=== PATIENT | male | born 1995 | race Two or more races ===

== ENCOUNTER 2016-08-21 20:22 | Emergency (ER) | payer SELFPAY ==
[~2016-08-21] VITALS: Ht 185.4 cm; Wt 69.9 kg
[2016-08-21 21:32] VITALS: BP 128/81
--- NOTE | 2016-08-21 21:51 | PHYS DOC ---
Past Medical History Past Medical History: No Pertinent History Past Surgical History: No Surgical History Alcohol Use: Occasionally Drug Use: None Adult General Chief Complaint Chief Complaint: LACERATION/AVULSION [facility] HPI Patient is a 20 year old who presents emergency department stating that he was cutting a step when he cut his right hand along the Metacarpal area. He has a V- shaped type laceration with a total measurement approximately 1 cm. Bleeding is currently controlled. Patient's immunizations are up-to-date. Patient has full range of motion of the hand. Good sensation noted to the fingers. Patient states he is right-hand dominant. Review of Systems Review of Systems Constitutional: Denies fever or chills [] Eyes: Denies change in visual acuity, redness, or eye pain [] HENT: Denies nasal congestion or sore throat [] Respiratory: Denies cough or shortness of breath [] Cardiovascular: No additional information not addressed in HPI [] GI: Denies abdominal pain, nausea, vomiting, bloody stools or diarrhea [] : Denies dysuria or hematuria [] Musculoskeletal: Denies back pain or joint pain [] Integument: Denies rash or skin lesions [] Neurologic: Denies headache, focal weakness or sensory changes [] Endocrine: Denies polyuria or polydipsia [] Current Medications Current Medications Current Medications Medications (Trade) Dose Ordered Sig/[facility] Start Time Stop Time Status Last Admin Dose Admin Lidocaine/Sodium Bicarbonate (Buffered Lidocaine 1%) 20 ml 1X ONCE 08/21/16 22:00 08/21/16 22:01 UNV Physical Exam Physical Exam Constitutional: Well developed, well nourished, no acute distress, non-toxic appearance. [] HENT: Normocephalic, atraumatic, bilateral external ears normal, oropharynx moist, no oral exudates, nose normal. [] Eyes: PERRLA, EOMI, conjunctiva normal, no discharge. [] Neck: Normal range of motion, no tenderness, supple, no stridor. [] Cardiovascular:Heart rate regular rhythm, no murmur [] Lungs & Thorax: Bilateral breath sounds clear to auscultation [] Skin: Warm, dry, no erythema, no rash. 1 cm V-shaped laceration noted to the right hand. This V-shaped laceration is noted along the second metacarpal area. Bleeding is currently controlled. The site appears to be clean. Back: No tenderness Extremities: No tenderness, no cyanosis, no clubbing, ROM intact, no edema. [] Neurologic: Alert and oriented X 3, normal motor function, normal sensory function, no focal deficits noted. [] Psychologic: Affect normal, judgement normal, mood normal. [] Current Patient Data Vital Signs Vital Signs Date Time Temp Pulse Resp B/P (MAP) Pulse Ox O2 Delivery O2 Flow Rate FiO2 08/21/16 21:32 98.3 79 16 96 Room Air 98.3 EKG EKG [] Radiology/Procedures Radiology/Procedures [] Course & Med Decision Making Course & Med Decision Making Pertinent Labs and Imaging studies reviewed. (See chart for details) Patient was provided with discharge instructions, treatment regimens and follow- up recommendations. Patient was provided with signs and symptoms of infection. There is recommended to have the sutures out in 7-10 days. Tylenol or ibuprofen for pain and discomfort ice packs on 20 minutes off 20 minutes several times a day. Signs and symptoms to return back to emergency department been provided. Patient agrees with discharge instructions treatment regimens and follow-up recommendations. [] Dragon Disclaimer Dragon Disclaimer This electronic medical record was generated, in whole or in part, using a voice recognition dictation system. Departure Departure Impression: Primary Impression: Laceration Disposition: 01 HOME, SELF-CARE Condition: STABLE Patient Instructions: Laceration Care, Adult, [id number] Additional Instructions: Activity as tolerated. Keep the area clean and dry. Clean the site with soap and water and apply antibiotic ointment to the site twice a day. Watch for signs and symptoms of infection: Redness, warmth, tenderness or any yellow/greenish drainage of a come from the site physician occur please follow- up to primary care physician immediately. Tylenol or ibuprofen for pain and discomfort. Ice packs on 20 minutes off 20 minutes several times a day. Sutures out in the next 7-10 days. Return back to emergency prior signs symptoms of become worse. Laceration/Wound Repair Laceration/Wound Repair : Wound Location: upper extremity Wound's Depth, Shape: superficial Wound Length (cm): 1 Wound Explored: clean Irrigated w/ Saline (ccs): 40 Betadine Prep?: Yes Anesthesia: 1% Lidocaine Volume Anesthetic (ccs): 4 Wound Debrided: minimal Wound Repaired With: sutures Suture Size/Type: 4:0 Number of Sutures: 5 Progress Site was injected with 4 mL of 1% lidocaine buffered. Site was then cleaned with Betadine irrigated with 40 mL of normal saline. 5 interrupted sutures of 4- 0 nylon was placed area dressing applied by nursing staff. DARY WORTHINGTON APRN August 21, 2016 21:51
[2016-08-21] MEDS ORDERED: LIDOCAINE 1% / SOD BICARB 8.4% 20 ML VIAL. IJ ONE (22:00)
== END 2016-08-21 22:40 | disposition home or self-care (01) ==
LOC: ER 22:04
DX: S61.411A Laceration without foreign body of right hand, initial encounter (principal); Y28.8XXA Contact with other sharp object, undetermined intent, initial encounter; Y93.89 Activity, other specified; Y99.8 Other external cause status; Y92.89 Other specified places as the place of occurrence of the external cause
CPT/HCPCS: 12001; 99283-25

== ENCOUNTER 2018-06-10 19:53 | Emergency (ER) | payer SELFPAY ==
[~2018-06-10] VITALS: Ht 188 cm; Wt 82.6 kg
[2018-06-10 20:11] VITALS: BP 147/92
--- NOTE | 2018-06-10 21:03 | RAD ---
Examination: HAND RIGHT 3V History: Hand trauma, pain Comparison/Correlation: None Findings: A total 3 images of the right hand were obtained. Joint spaces are normal. No acute fracture or bony destruction. Soft tissues are grossly unremarkable. Lucency involving the fourth digit proximal phalanx at the distal aspect is most compatible with a nutrient foramen. Impression: No suspicious acute process. Electronically signed by: Kalpesh Thomas MD (06/10/2018 9:00 PM) [id number]
--- NOTE | 2018-06-10 21:32 | PHYS DOC ---
Past Medical History Past Medical History: Anxiety Past Surgical History: No Surgical History Alcohol Use: Occasionally Drug Use: None Adult General Chief Complaint Chief Complaint: HAND PROBLEM HPI HPI Patient is a 22 year old M WHO P/W CC OF hand pain. Patient punched a wall on Monday night swelling noted moderate pain nonradiating. Allergies Allergies Allergies Coded Allergies Type Severity Reaction Last Updated Verified No Known Drug Allergies 08/21/16 No Physical Exam Physical Exam Constitutional: Well developed, well nourished, no acute distress, non-toxic appearance. [] HENT: Normocephalic, atraumatic, bilateral external ears normal, oropharynx moist, no oral exudates, nose normal. [] Eyes: PERRLA, EOMI, conjunctiva normal, no discharge. [] Neck: Normal range of motion, no tenderness, supple, no stridor. [] Skin: Warm, dry, no erythema, no rash. [] Back: No tenderness, no CVA tenderness. [] Extremities: TTP NOTED FIFTH METACRAPAL AREA Neurologic: Alert and oriented X 3, normal motor function, normal sensory function, no focal deficits noted. [] Psychologic: Affect normal, judgement normal, mood normal. [] Current Patient Data Vital Signs Vital Signs Date Time Temp Pulse Resp B/P (MAP) Pulse Ox O2 Delivery O2 Flow Rate FiO2 06/10/18 20:11 99.2 63 16 147/92 (110) 98 Room Air 99.2 EKG EKG [] Radiology/Procedures Radiology/Procedures [] Course & Med Decision Making Course & Med Decision Making Pertinent Labs and Imaging studies reviewed. (See chart for details) []HAND XRAY NEG Impression: No suspicious acute process. Electronically signed by: Jenni Sarah MD (06/10/2018 9:00 PM) [facility] DICTATED and SIGNED BY: JENNI SARAH MD DATE: 06/10/182058 [employer] Disclaimer Dragon Disclaimer This electronic medical record was generated, in whole or in part, using a voice recognition dictation system. Departure Departure Impression: Primary Impression: Hand contusion Disposition: HOME, SELF-CARE Condition: STABLE Patient Instructions: Contusion, [id number] SHANAE CLAY MD Jun 10, 2018 21:32
== END 2018-06-10 21:14 | disposition home or self-care (01) ==
LOC: ER 19:53
DX: S60.221A Contusion of right hand, initial encounter (principal); F41.9 Anxiety disorder, unspecified; W22.01XA Walked into wall, initial encounter; Y93.89 Activity, other specified; Y92.89 Other specified places as the place of occurrence of the external cause; Y99.8 Other external cause status
CPT/HCPCS: 29125; 73130; 99283